=== PATIENT | male | born 1960 | race Caucasian/White ===

== ENCOUNTER 2017-08-25 14:57 | Emergency (ER) | payer MEDICARE, MEDICAID ==
[~2017-08-25] VITALS: Ht 182.9 cm; Wt 82.6 kg
[~2017-08-25 14:57] MED LIST: HYDROCODONE-AP1 EAC6 PO; IBUPROFEN 800800 M1 PO; KEFLEX500 MG PO; NAPROSYN500 MG PO; NEOSPORIN OINTM15 GM TP; NORCO 5-325 TA1 EACH PO; NORFLEX100 MG PO; ROBAXIN 750 MG750 MG PO; SYNTHROID88 MCG PO; ULTRAM50 MG PO; VITAMIN E400 UNIT PO; WELLBUTRIN XL150 M1 PO; WHEELCHAIR1 EACH MC; [UNRECOGNIZED DRUG - OTHER]; [UNRECOGNIZED DRUG - OTHER]
[2017-08-25 15:00] VITALS: BP 128/75
== END 2017-08-25 15:25 | disposition home or self-care (01) ==
LOC: M.ERS 14:57
DX: S01.01XA Laceration without foreign body of scalp, initial encounter (principal); E03.9 Hypothyroidism, unspecified; Z77.22 Contact with and (suspected) exposure to environmental tobacco smoke (acute) (chronic); W01.0XXA Fall on same level from slipping, tripping and stumbling without subsequent striking against object, initial encounter; Y93.89 Activity, other specified; Y92.89 Other specified places as the place of occurrence of the external cause; Y99.8 Other external cause status

== ENCOUNTER → 2017-12-05 | Outpatient (CLI) | payer MEDICARE, MEDICAID ==
[~2017-12-05] MED LIST changes: +NABUMETONE 750750 M1 PO
== END ==
LOC: M.RAD 13:02
DX: S69.91XA Unspecified injury of right wrist, hand and finger(s), initial encounter (principal); E03.9 Hypothyroidism, unspecified; X58.XXXA Exposure to other specified factors, initial encounter; Y93.89 Activity, other specified; Y92.89 Other specified places as the place of occurrence of the external cause; Y99.8 Other external cause status

== ENCOUNTER 2017-12-18 14:03 | Emergency (ER) | payer MEDICARE, MEDICAID ==
[~2017-12-18] VITALS: Ht 182.9 cm; Wt 79.8 kg
[~2017-12-18 14:03] MED LIST changes: -NABUMETONE 750750 M1 PO
[2017-12-18] MEDS ORDERED: NORCO 5-325 TA1 EACH PO (15:30)
[2017-12-18] MEDS ORDERED: NABUMETONE 750750 M1 PO (15:31)
[2017-12-18 15:43] VITALS: BP 129/43
== END 2017-12-18 15:45 | disposition home or self-care (01) ==
LOC: M.ERS 14:03
DX: S20.212A Contusion of left front wall of thorax, initial encounter (principal); S00.31XA Abrasion of nose, initial encounter; S00.81XA Abrasion of other part of head, initial encounter; E03.9 Hypothyroidism, unspecified; Z77.22 Contact with and (suspected) exposure to environmental tobacco smoke (acute) (chronic); W01.0XXA Fall on same level from slipping, tripping and stumbling without subsequent striking against object, initial encounter; Y93.89 Activity, other specified; Y92.091 Bathroom in other non-institutional residence as the place of occurrence of the external cause; Y99.8 Other external cause status

== ENCOUNTER → 2017-12-19 | Outpatient (CLI) | payer MEDICARE, MEDICAID ==
[~2017-12-19] MED LIST changes: +NABUMETONE 750750 M1 PO
== END ==
LOC: M.RAD 12-12 14:30
DX: Z13.820 Encounter for screening for osteoporosis (principal); E03.9 Hypothyroidism, unspecified; G11.4 Hereditary spastic paraplegia; M85.862 Other specified disorders of bone density and structure, left lower leg

== ENCOUNTER 2018-04-11 14:22 | Emergency (ER) | payer MEDICARE, MEDICAID ==
[~2018-04-11] VITALS: Ht 182.9 cm; Wt 80.7 kg
[2018-04-11] MEDS ORDERED: LIORESAL 10 MG10 MG PO (14:32)
[2018-04-11] MEDS ORDERED: NORCO 5-325 TA1 EACH PO (15:53)
[2018-04-11 16:23] VITALS: BP 144/73
== END 2018-04-11 16:25 | disposition home or self-care (01) ==
LOC: M.ERS 14:22
DX: S22.41XA Multiple fractures of ribs, right side, initial encounter for closed fracture (principal); E03.9 Hypothyroidism, unspecified; Z77.22 Contact with and (suspected) exposure to environmental tobacco smoke (acute) (chronic); W18.39XA Other fall on same level, initial encounter; Y93.89 Activity, other specified; Y92.89 Other specified places as the place of occurrence of the external cause; Y99.8 Other external cause status

== ENCOUNTER 2018-05-17 13:54 | Emergency (ER) | payer MEDICARE, MEDICAID ==
[~2018-05-17] VITALS: Ht 152.4 cm; Wt 81.2 kg
[~2018-05-17 13:54] MED LIST changes: +LIORESAL 10 MG10 MG PO
[2018-05-17 16:52] LABS: ABSOLUTE EOSINOPHILS 0.1 thou/uL (0.0-0.7); ABSOLUTE LYMPHOCYTES 0.9 thou/uL (0.8-5.3); ABSOLUTE MONOCYTES 0.3 thou/uL (0.0-1.2); ABSOLUTE NEUTROPHILS 2.2 thou/uL (1.6-8.1); EOSINOPHILS 3.5 %; HEMATOCRIT 37.6 % (42.0-52.0); HEMOGLOBIN 12.7 gm/dL (14.0-18.0); LYMPHOCYTES 25.7 %; MCH 28.7 pg (26.0-34.0); MCHC 33.7 g/dL (28.0-37.0); MCV 85.2 fL (80.0-100.0); MONOCYTES 9.1 %; MPV 7.8 fl. (7.2-11.1); NUCLEATED RBCS 0 /100WBC; PLATELET COUNT* 141 thou/uL (150-400); POLYS 60.7 %; RBC 4.42 mil/uL (4.50-6.00); WBC 3.7 thou/uL (4.0-11.0)
[2018-05-17 16:59] LABS: CALCIUM 9.3 mg/dL (8.5-10.1); CREATININE 0.7 mg/dL (0.6-1.3); POTASSIUM 3.9 mmol/L (3.5-5.1)
[2018-05-17] MEDS ORDERED: NORCO 5-325 TA1 EACH PO (17:10)
[2018-05-17 17:15] VITALS: BP 148/75
== END 2018-05-17 17:15 | disposition home or self-care (01) ==
LOC: M.ERS 13:54
PROVIDERS: Nurse Practitioner Family
DX: S22.31XA Fracture of one rib, right side, initial encounter for closed fracture (principal); S50.01XA Contusion of right elbow, initial encounter; E03.9 Hypothyroidism, unspecified; Z77.22 Contact with and (suspected) exposure to environmental tobacco smoke (acute) (chronic); W18.39XA Other fall on same level, initial encounter; Y92.89 Other specified places as the place of occurrence of the external cause; Y93.89 Activity, other specified; Y99.8 Other external cause status

== ENCOUNTER 2018-05-18 13:08 | Emergency (ER) | payer MEDICARE, MEDICAID ==
[~2018-05-18] VITALS: Ht 182.9 cm; Wt 80.7 kg
[2018-05-18 15:39] VITALS: BP 111/62
== END 2018-05-18 15:22 | disposition home or self-care (01) ==
LOC: M.ERS 13:08
DX: R91.8 Other nonspecific abnormal finding of lung field (principal); E03.9 Hypothyroidism, unspecified; Z77.22 Contact with and (suspected) exposure to environmental tobacco smoke (acute) (chronic)

== ENCOUNTER 2018-05-30 08:48 | Observation (INO) | payer MEDICARE, MEDICAID ==
[2018-05-30] VITALS (8 sets, daily range): BP systolic 93–111; BP diastolic 55–73
[~2018-05-30] VITALS: Ht 182.9 cm; Wt 82.6 kg
[2018-05-30 13:30] LABS: ABSOLUTE EOSINOPHILS 0.2 thou/uL (0.0-0.7); ABSOLUTE MONOCYTES 0.4 thou/uL (0.0-1.2); ABSOLUTE NEUTROPHILS 2.5 thou/uL (1.6-8.1); BASOPHILS 1.2 %; EOSINOPHILS 4.5 %; HEMATOCRIT 37.4 % (42.0-52.0); HEMOGLOBIN 12.4 gm/dL (14.0-18.0); LYMPHOCYTES 23.3 %; MCH 28.6 pg (26.0-34.0); MCHC 33.3 g/dL (28.0-37.0); MCV 86.1 fL (80.0-100.0); MONOCYTES 9.8 %; MPV 7.6 fl. (7.2-11.1); NUCLEATED RBCS 0 /100WBC; PLATELET COUNT* 122 thou/uL (150-400); POLYS 61.2 %; RBC 4.35 mil/uL (4.50-6.00); RDW-CV 12.7 % (10.5-14.5); WBC 4.2 thou/uL (4.0-11.0)
[2018-05-30 13:44] LABS: CREATININE 0.7 mg/dL (0.6-1.3); POTASSIUM 4.2 mmol/L (3.5-5.1)
--- NOTE | 2018-05-30 14:04 | NUR ---
RECEIVED REPORT FROM [facility] AND ASSUMED CARE OF PT @ 6228.PT IS A/O X4,VSS,TRACING SB ON THE MONITOR.IV PATENT AND SALINE LOCKED.BIOPSY SITE CLEAN,DRY, AND INTACT.PT IS CALM AND COOPERATIVE WITH NO C/O PAIN AT TIME OF ASSESSMENT.PT LEFT RESTING IN BED WITH CALL LIGHT AND FALL PRECAUTIONS IN PLACE.WILL CONTINUE TO MONITOR.
--- NOTE | 2018-05-30 18:34 | NUR ---
VSS.CARDIAC MONITORING IN PLACE WITH NO CHANGES.IV PATENT AND SALINE LOCKED.NO C/O PAIN.PT INFORMED OF PLAN OF CARE AND COMMUNICATES UNDERSTANDING.HOURLY ROUNDING COMPLETED FOR PT SAFETY.CALL LIGHT AND FALL PRECAUTIONS IN PLACE.WILL CONTINUE TO MONITOR FOR DURATION OF SHIFT.
[2018-05-31] VITALS: BP 110/60
[2018-05-31 04:00] VITALS: BP 101/59
--- NOTE | 2018-05-31 05:11 | NUR ---
ASSUMED PT CARE @ 1930. NORCO GIVEN X 2 FOR RIGHT CHEST INCISION PAIN. DRESSING DRY AND INTACT. PT HAS BEEN USING URINAL THROUGH THE NIGHT. NO OTHER CONCERNS REPORTED. CALL LIGHT IN REACH. HOURLY ROUNDING FOR SAFETY.
[2018-05-31 07:56] VITALS: BP 109/67
[2018-05-31 08:20] VITALS: BP 109/67
[2018-05-31 08:30] VITALS: BP 109/67
[2018-05-31 11:26] VITALS: BP 109/67
--- NOTE | 2018-05-31 11:43 | NUR ---
APPLIED PSYCHOLOGY PROFESSOR INFORMED THAT THE PATIENT WOULD NEED A WALKER FOR MOBILITY AT D/C. D/C SEATING CAPTAIN SPOKE TO PAUL WITH PROVIDER [facility] TO INFORM OF THE DME REFERRAL. PAUL INFORMS THAT THE PATIENT IS APPROVED FOR A WALKER. D/C SEATING CAPTAIN FAXED THE PATIENT'S FACESHEET, H&P, AND DME ORDER TO PAUL AT PROVIDER [facility]. D/C SEATING CAPTAIN ALSO INFORMED P.T. OF THE NEED TO DISPENSE THE WALKER FROM THE DME CLOSET. COPY OF ORDER PLACED ON THE CHART AND PROVIDED TO P.T. CM WILL REMAIN AVAILABLE TO ASSIST AND FOLLOW NEEDED.
--- NOTE | 2018-05-31 13:00 | NUR ---
05/31 Days: Patient discharged home via private vehicle. Escorted out by DIALYSIS RN to vehicle safely. Discharge instructions given, all questions answered
--- NOTE | 2018-06-04 15:06 | PATH ---
[facility] [address] [place] [address] PATHOLOGY RPT PROCEDURE Name: JULIANO EVANS Room: [address] Michael Casper#: [id number] Admission: 05/30/18 Date of : 56 Discharge: 05/31/18 Report #: [id number] Path Case #: [id number] [facility] Accession Number: [id number] . 01 Material submitted: . LUNG TISSUE BIOPSY . 01 Clinical history: . Lung mass . 02 Diagnosis: Right lung mass, image-guided biopsy: - SQUAMOUS CELL CARCINOMA, MODERATELY DIFFERENTIATED. SEE COMMENT. (LATHA:nolan; 06/04/2018) QMS/06/04/2018 . 02 Comment: Multiple cores show nests of malignant cells without gland formation or cher keratinization, although there is an occasional suggestion of a keratin davin. Properly controlled immunohistochemical stains performed on A2 show the following results supporting the diagnosis: . P40: Positive. TTF-1: Negative. . Preliminary findings discussed with Dr. Warren at approximately 11:55 on 06/01/2018. Reviewed with Dr. Antolin Garcia, who agrees with the diagnosis. (LATHA:nolan; 06/04/2018) . 02 Electronically signed: . Bubba Sheffield MD, Pathologist NPI- [id number] . 01 Gross description: . Received in formalin labeled "Juliano Evans, Rt lung mass," are multiple needle cores of pale santos soft tissue ranging from 0.1 to 0.5 cm in length and measuring 0.1 cm each in diameter. The specimen is submitted entirely in cassettes A1 through A3. (DAC; 05/31/2018) XDC/XDC . 02 Pathologist provided ICD-10: C34.91 . 02 CPT . 617441, U17171, U57015 Specimen Comment: A courtesy copy of this [place] [address] PATHOLOGY RPT PROCEDURE Name: JULIANO EVANS Jackson Room: [address]#: [id number] Admission: 05/30/18 Date of : 56 Discharge: 05/31/18 Report #: [id number] Path Case #: [id number] Specimen Comment: [phone]. Specimen Comment: Report sent to Performed at: [address], [place], [place] [id number] MD Catalino Perez MD Phone: [phone] Performed at: 02 [facility] [address], [place], [place] [id number] MD Bubba Sheffield MD Phone: [phone]
== END 2018-05-31 11:45 | disposition home or self-care (01) ==
LOC: M.CT 08:48 → M.TBA 12:28 → M.2W 12:28
PROVIDERS: ADMIT Internal Medicine
DX: R91.8 Other nonspecific abnormal finding of lung field (principal); G11.4 Hereditary spastic paraplegia; E03.9 Hypothyroidism, unspecified

== ENCOUNTER 2018-07-14 12:13 | Emergency (ER) | payer MEDICARE, MEDICAID ==
[~2018-07-14] VITALS: Ht 182.9 cm; Wt 81.2 kg
[2018-07-14 13:18] LABS: ABSOLUTE EOSINOPHILS 0.1 thou/uL (0.0-0.7); ABSOLUTE MONOCYTES 0.4 thou/uL (0.0-1.2); BASOPHILS 0.7 %; EOSINOPHILS 2.9 %; HEMATOCRIT 37.3 % (42.0-52.0); HEMOGLOBIN 12.5 gm/dL (14.0-18.0); LYMPHOCYTES 28.6 %; MCH 28.7 pg (26.0-34.0); MCHC 33.5 g/dL (28.0-37.0); MCV 85.8 fL (80.0-100.0); MONOCYTES 12.3 %; MPV 7.5 fl. (7.2-11.1); NUCLEATED RBCS 0 /100WBC; PLATELET COUNT* 115 thou/uL (150-400); POLYS 55.5 %; RBC 4.34 mil/uL (4.50-6.00); RDW-CV 13.3 % (10.5-14.5); WBC 3.6 thou/uL (4.0-11.0)
[2018-07-14 13:29] LABS: CALCIUM 9.2 mg/dL (8.5-10.1); CREATININE 0.7 mg/dL (0.6-1.3); POTASSIUM 3.4 mmol/L (3.5-5.1)
[2018-07-14 13:34] LABS: ALBUMIN 3.9 g/dL (3.4-5.0); TOTAL BILIRUBIN 0.3 mg/dL (<0.1-1.0); TOTAL PROTEIN 7.4 g/dL (6.4-8.2)
[2018-07-14] MEDS ORDERED: PERCOCET 5-3251 EACH PO (15:48)
[2018-07-14] MEDS ORDERED: NORCO 7.5-3251 EACH PO (15:56)
[2018-07-14] MEDS ORDERED: LIDOCAINE VISC100 ML PO (15:57)
[2018-07-14 16:12] VITALS: BP 127/80
== END 2018-07-14 16:12 | disposition home or self-care (01) ==
LOC: M.ERS 12:13
PROVIDERS: Nurse Practitioner Family
DX: G89.18 Other acute postprocedural pain (principal); R07.0 Pain in throat; E03.9 Hypothyroidism, unspecified; Z77.22 Contact with and (suspected) exposure to environmental tobacco smoke (acute) (chronic); Z85.118 Personal history of other malignant neoplasm of bronchus and lung; Z85.89 Personal history of malignant neoplasm of other organs and systems

== ENCOUNTER 2019-02-13 12:47 | Emergency (ER) | payer MEDICARE, MEDICAID ==
[~2019-02-13] VITALS: Ht 182.9 cm; Wt 74.8 kg
[~2019-02-13 12:47] MED LIST changes: +LIDOCAINE VISC100 ML PO; +NORCO 7.5-3251 EACH PO; +PERCOCET 5-3251 EACH PO
[2019-02-13] MEDS ORDERED: LORCET 5-325 M1 EACH PO (13:03)
[2019-02-13] MEDS ORDERED: KEFLEX500 M1 PO (13:45)
[2019-02-13 14:27] VITALS: BP 119/69
== END 2019-02-13 14:27 | disposition home or self-care (01) ==
LOC: M.ERS 12:47
DX: S01.81XA Laceration without foreign body of other part of head, initial encounter (principal); E03.9 Hypothyroidism, unspecified; Z85.118 Personal history of other malignant neoplasm of bronchus and lung; Z85.21 Personal history of malignant neoplasm of larynx; Z77.22 Contact with and (suspected) exposure to environmental tobacco smoke (acute) (chronic); W18.39XA Other fall on same level, initial encounter; Y92.89 Other specified places as the place of occurrence of the external cause; Y93.89 Activity, other specified; Y99.8 Other external cause status

== ENCOUNTER → 2019-12-31 | Outpatient (CLI) | payer MEDICARE, MEDICAID ==
[~2019-12-31] MED LIST changes: +KEFLEX500 M1 PO; +LORCET 5-325 M1 EACH PO
== END ==
LOC: M.RAD 11:00
PROVIDERS: ATTEND Radiology Radiation Oncology
DX: C10.9 Malignant neoplasm of oropharynx, unspecified (principal)